=== PATIENT | male | born 1940 | race Caucasian/White ===

== ENCOUNTER 2017-01-03 08:09 | Day surgery (SDC) | payer MEDICARE, OTHER ==
[~2017-01-03 08:09] MED LIST: CALM; COREG6.25 M1 PO; CRESTOR10 M1 PO; EYE PROMISE PO; FINASTERIDE PO; KEFLEX500 M4 PO; LISINOPRIL10 M1 PO; PLAVIX75 M1 PO; PROMACTA PO; [UNRECOGNIZED DRUG - OTHER] PO
[2017-01-03 08:57] LABS: HCT-HEMATOCRIT 41.2 % (36.0-53.5); MCH (MEAN CORPUSCULAR HGB) 30.1 pg (28.0-32.0); MCHC MEAN CORPUSCULAR HGB CONC 31.6 % (32.0-36.0); MCV (MEAN CELL VOLUME) 95.4 fl (82.0-96.0); NEUTROPHIL-AUTOMATED 4.4 tho/cmm (1.6-8.0); PLATELET COUNT 74 tho/cmm (150-450); RED BLOOD COUNT 4.32 mil/cmm (4.40-5.70); RED CELL DISTRIBUTION WIDTH 17.2 % (12.4-16.4)
[2017-01-03 09:55] LABS: BAND % 3 % (0-20); BAND ABSOLUTE COUNT 0.3 tho/cmm (0-2.0); EOSINOPHIL % 1 % (0-7)
[2017-01-03 09:56] LABS: WBC MORPHOLOGY VARIANT LYMPHS
== END 2017-01-03 15:00 ==
LOC: SHSB 08:09 → ORW 10:04 → PACU 11:49 → SHSB 12:09
PROVIDERS: Anesthesiology
PROC: 0YU50JZ Supplement Right Inguinal Region with Synthetic Substitute, Open Approach (ICD-10-PCS; principal; 2017-01-03)
PROC: 30233R1 Transfusion of Nonautologous Platelets into Peripheral Vein, Percutaneous Approach (ICD-10-PCS; 2017-01-03)
DX: K40.30 Unilateral inguinal hernia, with obstruction, without gangrene, not specified as recurrent (principal); I25.10 Atherosclerotic heart disease of native coronary artery without angina pectoris; I10 Essential (primary) hypertension; E78.5 Hyperlipidemia, unspecified; N52.9 Male erectile dysfunction, unspecified; D69.3 Immune thrombocytopenic purpura; H61.23 Impacted cerumen, bilateral; Z79.02 Long term (current) use of antithrombotics/antiplatelets; Z79.899 Other long term (current) drug therapy; Z88.8 Allergy status to other drugs, medicaments and biological substances; Z87.891 Personal history of nicotine dependence; Z95.1 Presence of aortocoronary bypass graft; Z98.890 Other specified postprocedural states
CPT/HCPCS: A4306; C1781; J0690; P9035; P9037